=== PATIENT | female | born 1980 | race Two or more races ===

== ENCOUNTER 2016-11-29 20:09 | Observation (INO) | payer SELFPAY ==
[~2016-11-29] VITALS: Ht 160 cm; Wt 86.6 kg
[2016-11-29 21:23] LABS: Basophils # (auto) 0 uL; Basophils % (auto) 0.4 % (0.0-2.0); Eosinophils # (auto) 0.2 uL; Eosinophils % (auto) 1.4 % (0.0-7.0); Hematocrit 40.2 % (36.0-46.0); Hemoglobin 13.2 g/dL (12.2-16.2); Lymphocytes # (auto) 3.6 uL; Lymphocytes % (auto) 29.9 % (10.0-50.0); Mean Corpuscular Hemoglobin 28.7 pg (28.0-32.0); Mean Corpuscular Hgb Conc. 32.9 g/dL (32.0-36.0); Mean Corpuscular Volume 87.3 fL (80.0-100.0); Mean Platelet Volume 8.6 fL (7.4-10.4); Monocytes # (auto) 0.6 uL; Monocytes % (auto) 4.5 % (0.0-12.0); Neutrophils # (auto) 7.8 uL; Neutrophils % (auto) 63.8 % (37.0-80.0); Platelet Count (auto) 404 10^3/uL (140-450); Red Cell Distribution Width 13.4 % (11.6-16.0); White Blood Cell 12.2 10^3/uL (4.4-10.8)
[2016-11-29 21:33] LABS: Albumin 3.6 g/dL (3.4-5.0); Calcium 8.1 mg/dL (8.5-10.1)
[2016-11-29 21:36] LABS: BUN/Creatinine Ratio 16.9
[2016-11-29 21:39] LABS: Bilirubin, Total 0.3 mg/dL (0.2-1.0); Total Protein 8.2 g/dL (6.4-8.2)
[2016-11-29 22:26] LABS: Urine Color Yellow (Yellow)
[2016-11-29 22:27] LABS: Urine Glucose Normal (Normal); Urine Ketone Negative (Negative); Urine Nitrite Negative (Negative); Urine Urobilinogen Normal (Negative)
[2016-11-29 22:28] LABS: Urine Bilirubin Negative (Negative); Urine Blood 2+ /uL (Negative); Urine RBC 326 /hpf (0 - 4); Urine WBC Clumps PRESENT /hpf (None Seen)
[2016-11-29 22:29] LABS: Urine Mucus FEW (None Seen); Urine Squamous Epithelial Cell MOD /hpf (<5)
[2016-11-30] MEDS ORDERED: SODIUM CHLORIDE 0.9% 1,000 ML IV ONE (07:00)
[2016-11-30] MEDS ORDERED: NITROFURANTOIN (MONO) 100 mg CAP PO ONE (07:45)
[2016-11-30 10:36] VITALS: BP 110/69
== END 2016-11-30 10:48 | disposition home or self-care (01) | DRG 690 ==
LOC: ER 20:10 → OVERFLOW 11-30 06:54 → ER 11-30 10:48
PROVIDERS: ADMIT Emergency Medicine; ATTEND Emergency Medicine
DX: N39.0 Urinary tract infection, site not specified (principal); K76.0 Fatty (change of) liver, not elsewhere classified; Z90.710 Acquired absence of both cervix and uterus
CPT/HCPCS: 36415; 74176; 80053; 81001; 85025; 96360; 99285; G0378; J7030